=== PATIENT | female | born 1990 | race Caucasian/White ===

== ENCOUNTER 2020-09-25 11:03 | Emergency (ER) | payer MEDICAID ==
[~2020-09-25] VITALS: Ht 172.7 cm; Wt 100.0 kg
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
--- NOTE | 2020-09-25 11:36 | NUR ---
ex nahum juan [phone]
[2020-09-25] MEDS ORDERED: LORazepam 1MG TABLET PO ONE (12:00)
[2020-09-25] MEDS ORDERED: LIDOCAINE-MPF 1%, 5ML INFIL ONE (12:00)
[2020-09-25] MEDS ORDERED: DIPH,PERTUSS(ACELL),TET VAC/PF 0.5 ML IM-VACC ONE ×2 (12:00→12:17)
[2020-09-25 12:11] LABS: BASOPHILS % (AUTO) 1 % (0-1); EOSINOPHILS % (AUTO) 3 % (1-7); LYMPHOCYTES % (AUTO) 19 % (22-44); MEAN CORPUSCULAR HEMOGLOBIN 27.9 pg (27.0-34.8); MEAN CORPUSCULAR HGB CONC 34.3 g/dL (32.4-35.8); MEAN PLATELET VOLUME 7.1 fL (7.4-10.4); MONOCYTES % (AUTO) 5 % (2-9); NEUTROPHILS % (AUTO) 72 % (42-75); PLATELET COUNT 346 x10^3/uL (130-400); RED BLOOD COUNT 4.79 x10^6/uL (3.82-5.3); RED CELL DISTRIBUTION WIDTH 14.3 % (9.6-15.2)
[2020-09-25 12:16] LABS: ALANINE AMINOTRANSFERASE 22 U/L (12-78); ALBUMIN 3.6 g/dL (3.4-5.0); ANION GAP 4 mmol/L (5-15); CALCIUM 8.9 mg/dL (8.5-10.1); CHLORIDE 113 mmol/L (98-107); CREATININE 0.65 mg/dL (0.55-1.02); MD NO; SALICYLATE LEVEL 2.4 mg/dL (2.8-20.0)
[2020-09-25] MEDS ORDERED: LORazepam 1MG TABLET ONE (12:16)
[2020-09-25] MEDS ORDERED: LIDOCAINE-MPF 1%, 5ML ONE (12:16)
[2020-09-25 12:18] LABS: ALKALINE PHOSPHATASE 75 U/L (45-117); BILIRUBIN,TOTAL 0.3 mg/dL (0.2-1.0); TOTAL PROTEIN 6.7 g/dL (6.4-8.2)
--- NOTE | 2020-09-25 12:26 | NUR ---
meds per mar, sitter in place, tech at bedside for wound cleaning. as
--- NOTE | 2020-09-25 12:58 | NUR ---
pa at bedside for sutures. as
--- NOTE | 2020-09-25 14:46 | NUR ---
i o psychologist in room for eval. sitter in place. report to tracy magallon. as
[2020-09-25] MEDS ORDERED: NEOSPORIN OINT. PKT 1 PACKET ONE (15:34)
--- NOTE | 2020-09-25 15:59 | NUR ---
PT REC'VD DISCHARGE INSTRUCTIONS AND EDUCATION. PT PROVIDED RESOURCE HANDOUT. PT HAD NO QUESTIONS. PT AMBULATED TO DC AREA, STEADY GAIT.
[2020-09-25 16:08] VITALS: BP 135/89
== END 2020-09-25 16:11 | disposition home or self-care (01) ==
LOC: ED 13:47
DX: S41.111A Laceration without foreign body of right upper arm, initial encounter (principal); F43.24 Adjustment disorder with disturbance of conduct; F32.9 Major depressive disorder, single episode, unspecified; W26.8XXA Contact with other sharp object(s), not elsewhere classified, initial encounter; Y93.89 Activity, other specified; Y92.89 Other specified places as the place of occurrence of the external cause; Y99.8 Other external cause status
CPT/HCPCS: 12004; 36415; 80053; 80299; 80320; 80329; 85025; 90471; 90715; 99283; G0480

== ENCOUNTER 2020-09-27 16:34 | Emergency (ER) | payer MEDICAID ==
[~2020-09-27] VITALS: Ht 162.6 cm; Wt 108.0 kg
[2020-09-27 17:11] VITALS: BP 111/77
--- NOTE | 2020-09-27 17:37 | NUR ---
GREENHOUSE MANAGER: PT TO ROOM FROM LOBBY
--- NOTE | 2020-09-27 17:57 | NUR ---
pt discharged home. pt aware importance of antibiotic RX and follow up with dentist.
== END 2020-09-27 18:00 | disposition home or self-care (01) ==
LOC: ED 17:54
DX: K02.9 Dental caries, unspecified (principal); J45.909 Unspecified asthma, uncomplicated; Z88.8 Allergy status to other drugs, medicaments and biological substances; Z88.0 Allergy status to penicillin
CPT/HCPCS: 99283